=== PATIENT | male | born 1970 | race Caucasian/White ===

== ENCOUNTER 2021-09-06 06:24 | Day surgery (SDC) | payer OTHER ==
[~2021-09-06] VITALS: Ht 172.7 cm; Wt 99.8 kg
[~2021-09-06 06:24] MED LIST: ADVIL200 M1 PO; BENTYL10 MG PO; EXCEDRIN EXTRA1 EAC1 PO; FLUOXETINE HCL40 MG PO; OMEPRAZOLE20 MG PO; PERCOCET 5-3251 EACH PO; SERTRALINE HCL50 MG PO; ZOFRAN4 MG PO
--- NOTE | 2021-09-06 08:00 | NUR ---
09/06/21 0800 Val Dickey 0755 PT ARRIVED TO PACU ON 3L VIA NC, PT ASLEEP AND WAKES TO TACTILE STIMULI. PT REORIENTED TO PACU AND EASILY FALLS BACK TO SLEEP.
--- NOTE | 2021-09-06 10:45 | NUR ---
PT ALERT, ORIENTED AND HAS PREVIOUS SCOPES. HIS WILL ARRIVE FOR DC. ALL QUESTIONS ASKED ANSWERED. PP REQUESTED PRAYER, WILL FOLLOW
--- NOTE | 2021-09-07 08:24 | OR ---
[facility] [address] [place], [place] [address] Signed DATE OF OPERATION: 09/06/2021 SURGEON: Helena Arango MD PREOPERATIVE DIAGNOSES: 1. Unremarkable colonoscopy in 2008 at age 38. 2. Brother with colonic polyps. POSTOPERATIVE DIAGNOSES: 1. A 4 mm sandy-appendiceal polyp. 2. Minimal internal and external hemorrhoids. PROCEDURE: Colonoscopy with hot biopsy. ESTIMATED BLOOD LOSS: None. INDICATIONS: Mike is a 51-year-old gentleman asked to see me for a followup colonoscopy. He had a negative colonoscopy back in 2008 at age 38. He was having trouble with irritable bowel syndrome associated with diarrhea at that time. He did well with Versed and fentanyl. More recently, his brother has had to go back several times over several years to have colonic polyps removed. Mike himself has no lower GI complaints. I gave him a pamphlet on colonoscopy. He understands the nature of that test. There is risk including, but not limited to gas bloating, crampy abdominal pain, bleeding, perforation requiring surgery, and missed diagnosis. We also reviewed the need for IV conscious sedation. He had expressed understanding and wished to proceed. DESCRIPTION OF PROCEDURE: Mike was taken into our endoscopy suite and placed in the left lateral decubitus position. He was given a total of 6 mg of Versed and 100 mcg of fentanyl to cover the case. A digital rectal exam was performed. He had very minimal in the way of external hemorrhoid tissue. He has good sphincter tone. Prostate is quite unremarkable. The adult colonoscope had been introduced and advanced into the cecum without difficulty. His prep was good. We could easily see the appendiceal orifice and ileocecal valve. We took pictures throughout for photodocumentation. We used a hot biopsy forceps to remove the polyp next to the appendiceal orifice. There was no diverticulosis. The rectum was unremarkable. Upon retroflexion of scope, he has very minimal internal hemorrhoid tissue. After this, the gas was suctioned out, colonoscope removed. Mike tolerated Electronically Signed By: HELENA ARANGO MD 09/07/21 0824 PATIENT NAME: MIKE MENDOZA OPERATIVE REPORT DATE OF : 66 REPORT #: [id number] PHYSICIAN: HELENA ARANGO MD PCP: ALYSON CHEW REPORT IS CONFIDENTIAL AND NOT TO BE RELEASED WITHOUT AUTHORIZATION [facility] [address] [place] [address] Signed the procedure quite well. RECOMMENDATIONS: I will see Mike back in my office in 7 to 14 days to review his results. Based on his own personal history and his brother's history, it looks like he is on the 5-year rotation. MD MILLY Herr/TRINIDADL /[id number] cc: MD Alyson Herr, Nurse Practitioner Patient Chart Copies: HELENA ARANGO MD ~ Electronically Signed By: HELENA ARANGO MD 09/07/21 0824 PATIENT NAME: MIKE MENDOZA OPERATIVE REPORT DATE OF : 66 REPORT #: [id number] PHYSICIAN: HELENA ARANGO MD PCP: ALYSON CHEW REPORT IS CONFIDENTIAL AND NOT TO BE RELEASED WITHOUT AUTHORIZATION
--- NOTE | 2021-09-07 11:22 | PATH ---
[facility] [address] [place] [id number] Signed SPECIMEN(S): A CECAL POLYP SPECIMEN SOURCE: A. CECAL POLYP CLINICAL HISTORY: History of IBS and diarrhea. Family history of colon polyps. FINAL PATHOLOGIC DIAGNOSIS: Colon, cecum, polyp, polypectomy: - Cauterized tubular adenoma. - Negative for high-grade dysplasia or malignancy. NAL:cml:C2NR MICROSCOPIC EXAMINATION: Histologic sections of all submitted blocks are examined by light microscopy. These findings, together with the gross examination, support the pathologic diagnosis. GROSS DESCRIPTION: The specimen, labeled "DP, cecum polyp," is received in formalin and consists of one jackson soft tissue fragment that measures 0.1 cm in greatest dimension. The specimen is entirely submitted in cassette (A1). JS (under the direct supervision of a pathologist) The Gross Description was prepared using a voice recognition system. The report was reviewed for accuracy; however, sound-alike word errors, addition and/or deletions may occur. If there is any question about this report, please contact Client Services. PERFORMING LABORATORY: The technical component was performed by [facility], [address] [place] [id number] (CLIA# [id number]). Professional interpretation was performed by [facility], [address] [address] (CLIA# [id number]). Diagnostician: Pamela Carrera MD Pathologist Electronically Signed 09/07/2021 PATIENT NAME: MIKE MENDOZA PATHOLOGY DATE OF : 66 REPORT #: [id number] PHYSICIAN: KAIN YANG PCP: NICKIE CHEW REPORT IS CONFIDENTIAL AND NOT TO BE RELEASED WITHOUT AUTHORIZATION [address] [facility] [place] [place] [address] Signed Copies: ~ PATIENT NAME: MIKE MENDOZA PATHOLOGY DATE OF : 66 REPORT #: [id number] PHYSICIAN: KAIN YANG PCP: NICKIE CHEW REPORT IS CONFIDENTIAL AND NOT TO BE RELEASED WITHOUT AUTHORIZATION
== END 2021-09-06 08:35 | disposition home or self-care (01) ==
LOC: OPS 06:24 → DS 06:24 → OPS 07:30
PROVIDERS: ATTEND Colon & Rectal Surgery
PROC: 0DBH8ZX Excision of Cecum, Via Natural or Artificial Opening Endoscopic, Diagnostic (ICD-10-PCS; principal; 2021-09-06 07:30)
DX: Z12.11 Encounter for screening for malignant neoplasm of colon (principal); D12.0 Benign neoplasm of cecum; K21.9 Gastro-esophageal reflux disease without esophagitis; J45.991 Cough variant asthma; E78.5 Hyperlipidemia, unspecified; G47.33 Obstructive sleep apnea (adult) (pediatric); I45.6 Pre-excitation syndrome; F41.9 Anxiety disorder, unspecified; K64.4 Residual hemorrhoidal skin tags; K64.8 Other hemorrhoids; Z88.5 Allergy status to narcotic agent; Z83.71 Family history of colonic polyps
CPT/HCPCS: 99153; G0500; J2250; J3010; J7121

== ENCOUNTER 2023-11-26 10:29 | Day surgery (SDC) | payer OTHER ==
[~2023-11-26] VITALS: Ht 172.7 cm; Wt 105.0 kg
[~2023-11-26 10:29] MED LIST changes: +ADRENOID CAPSU1 EACH PO; +BACLOFEN5 MG PO; +IBLOOD GLUCOSE TEST STRIP 1 EA TEST VI PRN; +LACTATED RINGER'S 1,000 ML IV SCH; +LIDOCAINE HCL 1% 5 ML SDV INJ ONE; +VIT D3-VIT K21 EACH PO; +VITAMIN B12500 MCG PO
[2023-11-26 11:06] LABS: BASOPHILS 0.9 % (0-2); BASOPHILS, ABSOLUTE 0.1 %; EOSINOPHILS 1.7 % (0-6); EOSINOPHILS, ABSOLUTE 0.1; HEMATOCRIT 39.5 % (35.0-50.0); HEMOGLOBIN 13.5 g/dL (12.0-18.0); LYMPHOCYTES 27.7 % (24-44); LYMPHOCYTES, ABSOLUTE 1.7; MCH 28.9 (27-36); MCHC 34.2 g/dl (30-36); MCV 84.5 fl (81-99); MONOCYTES 7.6 % (0-12); MONOCYTES, ABSOLUTE 0.5; NEUTROPHILS 62.1 % (39-80); NEUTROPHILS, ABSOLUTE 3.9; PLATELET COUNT 322 K/uL (140-440); RBC 4.68 M/ul (4.3-5.7); RDW 13.7 (10.5-15.0)
[2023-11-26] MEDS ORDERED: VITAMIN D31250 MC2 PO (11:07)
[2023-11-26 11:09] VITALS: BP 121/72
[2023-11-26] MEDS ORDERED: propofoL 200 MG/20 ML VIAL ONE (11:33)
[2023-11-26] MEDS ORDERED: fentaNYL citrate 100 MCG/2 ML VIAL ONE (11:33)
[2023-11-26] MEDS ORDERED: LIDOCAINE HCL 2% 5 ML SDV ONE (11:33)
--- NOTE | 2023-11-26 12:28 | NUR ---
11/26/23 1228 Penny Ramires 1220-PATIENT ARRIVED TO PACU ON 2L NC RR EVEN. PATIENT NONAROUSABLE LAYING PRONE IVF INFUSING. BANDAIDS TO LOWER BACK CDI. SR. HR 60'S.
[2023-11-26 12:49] VITALS: BP 123/76
--- NOTE | 2023-11-28 17:27 | PATH ---
[facility] [address] [place], [place] [address] Signed SPECIMEN(S): A BONE MARROW - CORE, LEFT SPECIMEN(S): B BONE MARROW - ASPIRATION SPECIMEN(S): C FLOW CYTOMETRY, BM EDTA CLINICAL HISTORY: 53-year-old male with IgG-kappa. D47.2 (monoclonal gammopathy) DIAGNOSIS SUMMARY: A. Peripheral blood: - No morphologic abnormalities identified. B. Bone marrow aspirate smears, clot section/cellblock and core biopsy: - Normocellular bone marrow with trilineage progressive hematopoiesis. - Negative for this hematopoiesis. - Negative for increased number of plasma cells. - Negative for morphologic features of myeloproliferative neoplasm. 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 Morphologic evaluation of bone marrow demonstrate normocellular bone marrow with trilineage progressive hematopoiesis with no increased number of plasma cells identified. Concurrent flow cytometry is also negative for monotypic population of plasma cells. Overall the study is negative for plasma cell neoplasm. Cytogenetic studies and FISH panel for multiple myeloma are pending and will be reported in addendum PERIPHERAL BLOOD: Hemogram [facility], 11/26/2023): WBC 6.2K/UL, RBCs 4.68M/UL, hemoglobin 13.5 g/DL, hematocrit 39.5%, MCV 84.5 FL, MCH 28.9, MCHC 34.2 g/DL, RT DW 13.7%, platelets 3 22K/UL. Peripheral blood differential: 62% neutrophils 28% lymphocytes 7% monocytes 2% eosinophils 1% basophil Review of peripheral blood smear and CBC data demonstrate multiple RBCs are normal in number and are normocytic normochromic with no anemia present. No rouleaux formation or nucleated RBCs are encountered. The WBCs are normal in number and distribution. The neutrophils show unremarkable morphology. No immature cells/blasts are seen. Platelets are normal in number and morphology with occasional platelets aggregates seen. PATIENT NAME: MIKE MENDOZA PATHOLOGY DATE OF : 66 REPORT #: [id number] PHYSICIAN: KAIN PATHOLOGY PCP: NICKIE CHEW REPORT IS CONFIDENTIAL AND NOT TO BE RELEASED WITHOUT AUTHORIZATION [facility] [address], [place] [address] Signed BONE MARROW: Bone marrow aspirate smears: The bone marrow aspirate smears are adequately cellular for evaluation. Trilineage hematopoiesis is present with progressive pulmonary maturation. There is no increase in blasts identified. The M:E ratio appears normal. No dyshematopoiesis is identified. Scattered few plasma cells are seen and are normal in number and mature in morphology. The megakaryocytes are scattered and appear normal in number and unremarkable in morphology. Bone marrow differential: 1% blast, 3% promyelocytes, 10% myelocytes, 30% bands/neutrophils, 5% lymphocytes, 3% monocytes, 5% eosinophils, 2% plasma cells and 41% erythroid Bone marrow core biopsy and clot section: The bone marrow core biopsy demonstrates normocellular bone marrow for age with averaging cellularity of 40%. Trilineage hematopoiesis is present with progressive maturation. There is no lymphoid aggregates, granulomas or metastatic tumor cells present. No increase in plasma cells or large sheets identified. The megakaryocytes are scattered and appear normal in number, morphology and distribution. The cellblock shows similar findings. Special stains are performed (with appropriately reactive control and show the following results: Iron (aspirate smears): Decreased to absent storage iron. Iron (block B): Absent. Reticulin (block A) no significant increase in bone marrow reticulin fibrosis. Immunohistochemical stains are performed on block A1 (with appropriately reactive control) and show the following results: CD34: No increase in blasts (1-2%). CD138: Highlights scattered plasma cells (1 - 2%). CD138 (block B): Highlights scattered plasma cells (1%). FLOW CYTOMETRY: Bone marrow aspirate, flow cytometry: - No increase in blasts (1.0% myeloblasts). - No monotypic plasma cells detected. - Minor plasma cell subset with CD56 expression. - Normal myeloid maturation. - No atypical lymphoid cell population. - See Comment. COMMENT: Patient history of monoclonal gammopathy is noted. No monotypic plasma cells detected. About 0.8% polyclonal plasma cells are detected with minor subset expressing CD56 (dim). Correlation PATIENT NAME: MIKE MENDOZA PATHOLOGY DATE OF : 66 REPORT #: [id number] PHYSICIAN: KAIN PATHOLOGY PCP: NICKIE CHEW REPORT IS CONFIDENTIAL AND NOT TO BE RELEASED WITHOUT AUTHORIZATION [facility] [address] [place], [place] [address] Signed with clinical, morphologic, and genetic findings is recommended for quantitation of plasma cells and for full interpretation and to assess for disease processes not fully examined by flow cytometry analysis, including myelodysplastic syndrome and myeloproliferative neoplasm. FLOW CYTOMETRY ANALYSIS: FLOW DIFFERENTIAL (% Total CD45 vs. SSC gating): Myeloid 65%; Lymphoid 7%; Monocyte 3%; Dim CD45/Blast 1.0%; Plasma Cells 0.8%. Cell Count: 9.1 x 10*3/uL. POPULATION ANALYSIS: BLASTS: Analysis of the dim CD45 gate demonstrates 1.0% myeloblasts by CD34/CD117 and 1.0% hematogones. LYMPHOID CELLS: The lymphocyte gate comprises 7% of total events and includes 68% T-cells with a CD4:CD8 ratio of 1.1:1 and normal lezama T-cell antigen expression. 24% of lymphocytes are B-cells with a kappa:lambda ratio of 1.2:1. The remainders are NK cells. MYELOID CELLS: The myeloid population comprises 65% of the total events. No aberrant immature immunophenotypic expression is detected. MONOCYTES: The monocyte population comprises 3% of the total events. Monocytes are not increased. No aberrant immunophenotypic expression is detected. PLASMA CELLS: A clinical history of MGUS is noted. For this reason, selected additional antibodies are run to further characterize the plasma cells. 0.8% polyclonal plasma cells are detected (n=392) expressing CD45 DIM-NEG, CD38 BR, CD138 MOD, and CD56 DIM (minor subset) while negative for CD56 with a ckappa:clambda ratio of 1.3:1. Initial Antibodies Used: KAPPA, LAMBDA, CD20, CD10, CD19, CD23, CD38, CD16, CD56, CD8, CD5, CD2, CD4, CD7, CD3, CD14, CD33, CD13, HLADR, CD34, CD117, CD15, CD45. Additional Antibodies (necessary for further plasma cell analysis): ckappa, clambda, CD138. Total Antibodies Used: 26. JNB FINAL DIAGNOSIS PERFORMED BY: Mariajose Catalan MD, Nov 27 2023 10:26PM ADDITIONAL NOTES: This test was developed and its performance characteristics determined by [facility]. It has not been cleared or approved by the US Food and Drug Administration. The FDA does not require this test to go through premarket FDA review. This test is used for clinical purposes. It should not be regarded as investigational or for research. This laboratory is certified under the Clinical PATIENT NAME: MIKE MENDOZA PATHOLOGY DATE OF : 66 REPORT #: [id number] PHYSICIAN: KAIN PATHOLOGY PCP: NICKIE CHEW REPORT IS CONFIDENTIAL AND NOT TO BE RELEASED WITHOUT AUTHORIZATION [facility] [address], [place] [address] Signed Laboratory Improvement Amendments (CLIA) as qualified to perform high complexity clinical laboratory testing. PERFORMING LABORATORY: Technical component [place] [address] (CLIA# [id number]). Professional interpretation was performed by [facility], [address] [place] [address] (CLIA#: [id number]). IMAGES: [id number]: [id number]: [id number] Diagnostician: Mariajose Catalan MD Pathologist Electronically Signed 11/28/2023 Copies: ~ PATIENT NAME: MIKE MENDOZA PATHOLOGY DATE OF : 66 REPORT #: [id number] PHYSICIAN: KAIN YANG PCP: NICKIE CHEW REPORT IS CONFIDENTIAL AND NOT TO BE RELEASED WITHOUT AUTHORIZATION
== END 2023-11-26 12:55 | disposition home or self-care (01) ==
LOC: OPS 10:29 → DS 10:29 → OPS 12:00
PROVIDERS: ATTEND Specialist
PROC: 07DT3ZX Extraction of Bone Marrow, Percutaneous Approach, Diagnostic (ICD-10-PCS; 2023-11-26)
PROC: 079T3ZX Drainage of Bone Marrow, Percutaneous Approach, Diagnostic (ICD-10-PCS; principal; 2023-11-26 12:00)
DX: D47.2 Monoclonal gammopathy (principal); Z88.5 Allergy status to narcotic agent
CPT/HCPCS: 01112; 36415; 85025; J2001; J2704; J3010; J7121